=== PATIENT | male | born 1970 | race Caucasian/White ===

== ENCOUNTER 2018-06-26 12:07 | Emergency (ER) | payer OTHER ==
[2018-06-26] MEDS ORDERED: MECLIZINE HCL 25 MG TABLET PO ONE (13:49)
[2018-06-26 13:50] VITALS: BP 143/89
--- NOTE | 2018-06-26 14:03 | ER Document Report ---
ED Dizziness/Weakness - General Chief Complaint: Dizziness Stated Complaint: DIZZINESS Time Seen by Provider: 06/26/18 13:34 Mode of Arrival: Ambulatory Information source: Patient TRAVEL OUTSIDE OF THE [place] IN LAST 30 DAYS: Yes - HPI Patient complains to provider of: Vertigo Notes: Patient here with complaints of vertigo. The patient states that he woke up this morning and when he stood up the room was spinning he had some trouble walking for about 1 minute. After he stopped moving and rested, symptoms improved. He has had several other episodes throughout the day that if he moves he gets dizzy and spends and then 1 minute. The patient has had benign positional vertigo in the past and states that this feels exactly like that. He denies any recent head injury. No blood thinners. He denies any blurred or loss vision. No fever. No neck pain or neck stiffness. No unilateral numbness, tingling, weakness. No chest pain or shortness of breath. no abdominal pain. No nausea, vomiting, diarrhea. No rash. Symptoms are intermittent, worse with head movement, better with rest. No other complaints at this time. - Related Data Allergies/Adverse Reactions: No Known Allergies Allergy (Unverified 06/26/18 12:09) Past Medical History - Social History Smoking Status: Current Every Day Smoker Frequency of alcohol use: None Drug Abuse: None Family History: Reviewed & Not Pertinent Patient has suicidal ideation: No Patient has homicidal ideation: No Renal/ Medical History: Denies: Hx Peritoneal Dialysis GI Medical History: Reports: Hx Gastroesophageal Reflux Disease - acid reflux Past Surgical History: Reports: Hx Orthopedic Surgery - R shoulder Review of Systems - Review of Systems -: Yes All other systems reviewed and negative Physical Exam - Vital signs Vitals: Temp Pulse Resp BP Pulse Ox 97.9 F 60 18 146/89 H 97 06/26/18 12:15 06/26/18 12:15 06/26/18 12:15 06/26/18 12:15 06/26/18 12:15 - Notes Notes: GENERAL: alert, cooperative, nontoxic, no distress. HEAD: normocephalic, atraumatic EYES: conjunctiva pink without discharge, no external redness or swelling. Pupils are equal, round, reactive to light. EARS: no external swelling, no external redness. TMs pearly jackson with no eryt lazaro or perforation. Clear effusion. NOSE: atraumatic, no external swelling MOUTH/THROAT: mucous membranes moist and pink, posterior pharynx without erythema, swelling, exudate. No trismus or drooling. NECK: soft, supple, full range of motion, no meningismus. CHEST: no distress, lungs clear and equal throughout. No wheezing, rales, rhonchi. CARDIAC: regular rate and rhythm, no murmur, normal capillary refill, normal pulses. No peripheral edema noted. BACK: full range of motion, no CVA tenderness. EXTREMITIES: full range of motion of all extremities. No redness, no swelling. NEURO: alert and oriented x 3, cranial nerves II through XII are grossly intact. Upper and lower extremities are equal throughout. Normal sensation. No focal deficits, full range of motion of all extremities. normal finger to nose. Normal [id number]. NIH stroke score of 0. PYSCH: appropriate mood, affect. Patient is cooperative. SKIN: pink, warm, dry, no rash. Course - Re-evaluation Re-evalutation: 06/26/18 13:54 Patient is nontoxic-appearing with stable vitals. Patient is here with complaints of dizziness. The patient has a history of vertigo. He states that when he woke up this morning and got up he started to feel like everything was spinning. This lasted for about 1 minute. Has had several episodes of this today only with head movement. He denies any dizziness now. No chest pain or shortness of breath. No blood thinners. No stroke symptoms. He has a nonfocal neurological exam at this time. He did have some mild dizziness when he stood up briefly this was short-lived. No abnormal cerebellar exam findings. Patient looks well otherwise. Patient was given a dose of Antivert in triage. I offered to keep an eye on him for a little while and reassess to see how is doing, he states that this feels exactly like previous episodes of dizziness that he is had in the past and he would prefer to go ahead and get discharged with a prescription at this time. This point he has no obvious signs of cerebellar injury, stroke or other central neurological deficit. He will be discharged home with Antivert with a referral to ENT since he has had this several times in the past. Follow-up with ENT or his primary care doctor at the next available appointment. Return for constant dizziness, numbness, tingling, weakness, severe headache, chest pain or shortness of breath, persistent vomiting, or for any further concerns. The patient's emergency department workup and current diagnosis were explained to the patient and or family. Follow-up instructions were provided. Medications if prescribed were discussed. Instructions for when to return to the emergency department including specific worrisome symptoms were discussed with the patient and/or family. - Vital Signs Vital signs: Temp Pulse Resp BP Pulse Ox 97.9 F 60 18 146/89 H 97 06/26/18 12:15 06/26/18 12:15 06/26/18 12:15 06/26/18 12:15 06/26/18 12:15 Discharge - Discharge Clinical Impression: BPV (benign positional vertigo) Qualifiers: Laterality: unspecified laterality Qualified Code(s): H81.10 - Benign paroxysmal vertigo, unspecified ear Condition: Stable Disposition: HOME, SELF-CARE Instructions: Vertigo ([facility]), Meclizine ([facility]) Additional Instructions: Take medication as prescribed. Drink plenty fluids. Make sure you are getting up and moving slowly. Follow-up with your doctor if not better in the next few days. Follow-up with your ENT at the next available appointment. Follow-up sooner for worsening symptoms, constant dizziness, headache, blurred or loss vision, numbness, Shell, weakness, fever, neck stiffness, chest pain or shortness of breath, or for any further concerns. Prescriptions: Meclizine HCl [Antivert 25 mg Tablet] 25 mg PO TID PRN #21 tablet PRN Reason: Forms: Elevated Blood Pressure, Smoking Cessation Education, Return to Work Referrals: DAVID ORTA DO [ASSOCIATE] - Follow up as needed
== END 2018-06-26 13:55 | disposition home or self-care (01) ==
LOC: ER 12:07
DX: H81.10 Benign paroxysmal vertigo, unspecified ear (principal); F17.200 Nicotine dependence, unspecified, uncomplicated
CPT/HCPCS: 99283